=== PATIENT | female | born 1995 | race Caucasian/White ===

== ENCOUNTER 2024-12-31 12:50 | Emergency (ER) | payer OTHER, SELFPAY ==
[2024-12-31 12:54] VITALS: BP 167/98
--- NOTE | 2024-12-31 13:13 | ED.GENMED ---
History of Present Illness
General
Chief Complaint: Chest Pain
Time Seen by Provider: 12/31/24 13:02
Nursing documentation reviewed up to this point in time: agreed with
History of Present Illness
History of Present Illness:
29-year-old female presents to the ER for evaluation of generalized fatigue, weakness and feeling of chest tightness which has been present all day today. Patient states that she is experiencing symptoms intermittently but worsening since the
beginning of the year. She was diagnosed with dysautonomia after being evaluated by her primary care physician and additional specialist. She states that she has been eating and drinking without difficulty, which was surprising to her as her
symptoms usually happen when she does not feel like she is adequately hydrated. She denies any recent illness per se. No recent travel. No rash. No prior personal history of ACS or venous thromboembolism. No calf pain or lower extremity edema.
She reports generalized pain but states that she was also diagnosed with neuropathy. She has been vaping marijuana to help with her symptoms. She has a prior history of migraines, asthma, sleep apnea, palpitations and dysautonomia.
Past History
Past History
ED Past Medical History: Other (Polycystic ovarian syndrome, migraines, sleep apnea, asthma, anxiety and depression)
Review of Systems
Review of Systems
Allergies reviewed?: Yes
Phy Exam
Physical Exam
Physical Exam:
Patient is awake, alert, obese, appears in no acute distress, head is NCAT, PERRL, EOMI mucous membranes moist, conjunctiva pink, heart regular rate and rhythm without murmurs or ectopy, lungs are clear to auscultation without wheezes rales or
rhonchi, no JVD, abdomen is soft and nontender on palpation, extremities without edema, No calf pain on palpation, no rash,GCS is 15
Scores
Heart Score for Chest Pain Patients
STEMI patient?: No
History: Slightly or Non-Suspicious
ECG: Normal
Age: </= 45 years
Risk Factors: 1 or 2 Risk Factors
Troponin: </= Normal Limit
Heart Score for Chest Pain Patients: 1
Heart Score Risk: 2.5% MACE over next 6 weeks
Course
Orders/Labs/Results
Orders:
Orders
12/31/24
Electrocardiogram (*1) Stat
Comment: ALREADY DONE
12/31/24 12:51
Electrocardiogram (*1) Urgent
Reason for Study: Chest Pain
EKG- Treatment ONCE
12/31/24 13:03
0.9% Sodium Chloride 1000 ml [Nss] 1,000 ml IV BOLUS
Test Result ONCE
12/31/24 13:11
CR Chest - 2 Views Urgent
Comment:
Reason For Exam: chest pain
12/31/24 14:16
Complete Blood Count/With Diff Urgent
12/31/24 14:52
Basic Metabolic Panel Urgent
D-Dimer Urgent
Magnesium Urgent
Troponin I Urgent
12/31/24 15:08
, Urine Qualitative Screen [HCG, Urine Qualitative Screen] Urgent
Date Specimen was Collected: 12/31/24
Time Specimen was Collected: 14:45
Urinalysis Urgent
Date Specimen was Collected: 12/31/24
Time Specimen was Collected: 14:46
Urine Microscopic Urgent
Date Specimen was Collected: 12/31/24
Time Specimen was Collected: 14:46
Abnormal Lab Results
12/31/24 12/31/24 12/31/24
14:16 14:52 15:08
Hgb 11.9 L g/dL
(12.0-16.0)
MCH 26.3 L pg
(27.0-31.0)
MCHC 32.1 L g/dL
(33.0-37.0)
Absolute Neuts (auto) 6.6 H 10^3/uL
(1.4-6.5)
Lymphocytes % 18.0 L %
(20.5-51.1)
Carbon Dioxide 21 L mmol/L
(22-30)
Ur Leukocyte Esterase 2+ A
(Negative)
Urine WBC 6-10 A /HPF
(0-5)
Urine Bacteria Few A
(Negative)
12/31/24 14:16
12/31/24 14:52
Troponin negative, D-dimer negative, kidney function and electrolytes within normal limits, CBC stable compared to prior, Patient is not
Vital Signs
Initial and Last Documented VS:
Initial Vital Signs
Temp Pulse Resp BP Pulse Ox
98.2 F 95 16 167/98 97
12/31/24 12:54 12/31/24 12:54 12/31/24 12:54 12/31/24 12:54 12/31/24 12:54
Last Documented Vital Signs
Temp Pulse Resp BP Pulse Ox
98.2 F 95 12 146/86 97
12/31/24 12:54 12/31/24 14:15 12/31/24 14:15 12/31/24 13:43 12/31/24 14:00
MDM/Problems Addressed
Differential Diagnosis Includes:
Differential diagnosis to consider but not limited to arrhythmia, electrolyte dyscrasia, ACS, PE, anxiety, dysautonomia along with other etiologies considered
*Radiology
Radiology exam reviewed: preliminary read by ED provider (I independently viewed and interpreted two-view chest x-ray showing no acute process, normal cardiac silhouette)
*Pulse Oximetry
SaO2: 97
Oxygen Mode of Delivery: Room air
Patient hypoxic: no
*EKG
Interpreted by ED Provider?: Yes (I independently viewed and interpreted twelve-lead EKG showing normal sinus rhythm, rate 94, normal axis, normal intervals, this is a normal tracing, similar to prior from 09/01/2022)
*Getterer Interpretation
Rate: normal (I independently viewed and interpreted rhythm strip showing normal sinus rhythm, no ectopy)
*Critical Care Note
Total Time (30-74mins, 75-104mins- exclusive of procedures): Not Applicable
Update Note
Update Note:
Nurse unable to place IV via traditional or ultrasound guidance. Will to butterfly stick for labs and encourage oral hydration. Will reassess
Patient drinking fluids. Vital signs stable. No evidence for acute worrisome process seen on labs-urinalysis does not reflect acute infection. She is not . D-dimer and troponin are both negative and very reassuring.
I reviewed all test results with patient and significant other present at bedside. I discussed with them no evidence for acute worrisome process. She was able to tolerate p.o. I encouraged her to follow-up with her primary care physician for
reevaluation and further care. Patient expressed understanding of discharge plan and had no questions prior to the department.
ED Attending Note
-
Portions of this chart may have been created with voice recognition software.� Occasional wrong word or��sound alike� substitutions may have occurred due to the inherent limitations of voice recognition software.
Discharge Plan
Departure
Patient Disposition: Home (Routine Discharge)
Date of Disposition: 12/31/24
Time of Disposition: 16:16
Patient with high blood pressure during this ER visit?: No
Discharge Problem:
Weakness, Dysautonomia
Instructions: Weakness - ED (DC)
Prescriptions:
No Action
fluoxetine 40 mg Capsule
40 mg PO DAILY
metformin 500 mg Tablet
500 mg PO DAILY
spironolactone 25 mg Tablet
25 mg PO BID
lamotrigine [Lamictal] 25 mg Tablet
75 mg PO DAILY
aripiprazole [Abilify] 5 mg Tablet
5 mg PO DAILY
cefuroxime axetil 500 mg tablet
500 mg PO BID 7 Days Qty: 14 0RF
Referrals:
UNKNOWN - PT NOT,INTERVIEWE [Family Provider]
Activity Restrictions/Additional Instructions:
Encourage fluids, continue using electrolyte solution daily to help improve your hydration status. Please follow-up with your primary care physician in 2 days for reevaluation
Interventions
Interventions:
*Risk Screen - Suicide Last Done: 12/31/24 12:54
*General Assessment Last Done: 12/31/24 12:54
*Neglect/Abuse Screening Last Done: 12/31/24 16:46
*ED- Fall Risk Assessment Last Done: 12/31/24 16:46
*ED COVID-19 Vaccine History Last Done: 12/31/24 16:46
*Nursing Disposition Last Done: 12/31/24 16:46
ED- Cardiac Assessment Last Done: 12/31/24 16:45
Discharge Date and Time
Discharge Date/Time: 12/31/24 16:46
Print Language: SAO TOMEAN
[2024-12-31 13:43] VITALS: BP 146/86
[2024-12-31 14:24] LABS: Hematocrit 37.1 % (37.0-47.0); Hemoglobin 11.9 g/dL (12.0-16.0); Mean Corp Hgb Conc. 32.1 g/dL (33.0-37.0); Mean Corpuscular Volume 82.1 fL (81.0-99.0); Nucleated Red Blood Cells % 0 %; Platelet Count 255 10^3/uL (130-400); Red Cell Dist. Width 14.4 % (11.5-14.5)
[2024-12-31 15:13] LABS: Blood Urea Nitrogen 13 mg/dl (7-17); Calcium 9.4 mg/dl (8.4-10.2); Carbon Dioxide 21 mmol/L (22-30); Chloride 107 mmol/L (98-107); D-Dimer 0.50 ug/mlFEU (0.00-0.50); Glucose 97 mg/dl (70-99); Magnesium 1.8 mg/dl (1.6-2.3); Potassium 4.6 mmol/L (3.5-5.1); Sodium 138 mmol/L (135-145); eGFR > 60.00
[2024-12-31 15:17] LABS: Urine Character Clear (Clear)
[2024-12-31 15:23] LABS: Troponin I < 0.012 ng/ml
[2024-12-31 15:30] LABS: HCG, Urine Qualitative Screen Negative
[2024-12-31 15:31] LABS: Urine Red Blood Cell 0-2 /HPF (0-2)
== END 2024-12-31 16:46 | disposition home or self-care (01) ==
LOC: EMR 12:50
PROVIDERS: EMERGENCY PHYSICIAN Emergency Medicine
DX: R53.1 Weakness (principal); G90.1 Familial dysautonomia [Riley-Day]; G62.9 Polyneuropathy, unspecified; J45.909 Unspecified asthma, uncomplicated; G47.30 Sleep apnea, unspecified; F41.9 Anxiety disorder, unspecified; F32.A Depression, unspecified; F12.90 Cannabis use, unspecified, uncomplicated; E28.2 Polycystic ovarian syndrome
CPT/HCPCS: 99284; 71046; 80048; 81003; 81015; 81025; 83735; 84484; 85025; 85379; 93005